=== PATIENT | male | born 1960 | race Caucasian/White ===

== ENCOUNTER → 2017-08-11 | Outpatient (CLI) | payer OTHER ==
[~2017-08-11] MED LIST: COLC0.6T54 PO; INDO75CA PO
--- NOTE | 2017-08-11 14:42 | DIAGNOSTIC IMAGING REPORT ---
L LOWER EXTREMITY WITHOUT CLINICAL HISTORY: 56 years-old Male presenting with CLOSED NONDISPLACED FX OF LEFT AND RIGHT CALCANEUS. TECHNIQUE: Multidetector CT of the left ankle was performed without the use of intravenous contrast. IV contrast: None. A dose lowering technique was used consistent with the principles of ALARA (as low as reasonably achievable). COMPARISON: None. CT DOSE (mGy.cm): The estimated cumulative dose is 203.65. 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 Transversely oriented fracture plane through the calcaneus, which is intra-articular and disrupts the posterior subtalar joint. There is 2 mm of cortical step-off at the posterior subtalar joint (series 301 image 46). Cortical disruption of the posterior subtalar joint is noted immediately with the lateral aspect of the joint preserved, the fracture plane exiting the calcaneus more laterally. There is greater diastases of the calcaneal fracture plane along the posterior aspect secondary to opposing tension from the Achilles tendon and plantar fascia. Diastases at the posterior aspect of the fracture plane measures 11 mm. There is a secondary fracture plane that is coronally oriented along the inferior calcaneus which results in fragmentation of the insertion site of the plantar fascia. The middle and anterior subtalar joints are preserved. Ankle mortise preserved. A potential unstable osteochondral lesion may be present at the anterolateral tibial plafond (series 300 images 40 and 36). The slightly fragment appears well-corticated indicating a chronic injury. Alternatively this may represent fragmented osteophytes. Diffuse subcutaneous edema. Soft tissues of the ankle demonstrate degenerative related calcification of the tibialis anterior. Soft tissues are otherwise grossly unremarkable allowing for suboptimal evaluation on CT. No gross evidence of hematoma or an open wound. IMPRESSION: 1. Mildly comminuted intra-articular fracture of the calcaneus, which violates the posterior subtalar joint. Further details as above. Electronically signed by: Stanley Bauman M.D. 08/11/2017 2:41 PM Dictated Date/Time: 08/11/2017 2:32 PM
--- NOTE | 2017-08-11 14:44 | DIAGNOSTIC IMAGING REPORT ---
CT RIGHT CALCANEUS NO CONTRAST CT DOSE: 203.65 mGy.cm CLINICAL HISTORY: Right calcaneal fracture TECHNIQUE: Helical images were acquired in the transverse plane. Sagittal and coronal reformatted images were acquired. A dose lowering technique was utilized adhering to the principles of ALARA. COMPARISON STUDY: None. FINDINGS: There is anterior fusion of the distal tibia and fibula. No calcaneal fractures are visualized. There is a prominent Achilles insertional spur and tiny plantar calcaneal spur. No fractures the talus are visualized. There is a partially visualized fracture of the medial cuneiform. Chip fractures of the middle and lateral cuneiform are also suspected. There is a small cuboid avulsion. There is a chip/avulsion fracture involving the base of the fourth metatarsal. IMPRESSION: 1. No evidence of calcaneal fracture 2. Partially visualized fracture the medial cuneiform 3. Chip/avulsion fractures of the middle and lateral cuneiforms 4. Small cuboid avulsion fracture 5. Chip/avulsion fracture involving the base of the fourth metatarsal. Electronically signed by: Buck Manjarrez M.D. 08/11/2017 2:43 PM Dictated Date/Time: 08/11/2017 2:35 PM
== END | disposition home or self-care (01) ==
LOC: C.CTS 13:42
PROVIDERS: ATTEND Podiatrist Foot & Ankle Surgery
DX: S92.061A Displaced intraarticular fracture of right calcaneus, initial encounter for closed fracture (principal); X58.XXXA Exposure to other specified factors, initial encounter